=== PATIENT | female | born 1955 | race Caucasian/White ===

== ENCOUNTER 2024-09-26 14:22 | Outpatient (CLI) | payer MEDICARE, OTHER ==
--- NOTE | 2024-09-27 11:27 | RADIOLOGY REPORT ---
CLINICAL INDICATION: OTHER SPECIFIED MONONEUROPATHIES OF UNSPECIFIED LOWER LIMB PAIN R/L FOOT COMPARISON: None TECHNIQUE: Multiplanar, multisequence MRI of the right foot was performed without intravenous contras t. Contrast: None. INTERPRETATION: Bones: No evidence of acute fracture. There is no marrow replacing lesion. Soft tissues: The Lisfranc ligament is intact. The medial and lateral collateral ligaments are intac t at the metatarsophalangeal joints. The flexor and extensor tendons are intact. There is no planta r plate tear. There is no soft tissue mass or fluid collection. The intrinsic muscles of the foot a re unremarkable. IMPRESSION: 1. No acute osseous, soft tissue abnormality or arthropathy in the right foot.
--- NOTE | 2024-09-27 14:54 | RADIOLOGY REPORT ---
CLINICAL INDICATION: PAIN IN RIGHT FOOT, PAIN IN LEFT FOOT,THER SPECIFIED MONONEUROPATHIES OF UN COMPARISON: None TECHNIQUE: Multiplanar, multisequence MRI of the left foot was performed without intravenous contrast . Contrast: None. INTERPRETATION: Bones: No evidence of acute fracture. There is no marrow replacing lesion. Joints: Intact. No periarticular erosion. Soft tissues: The Lisfranc ligament is intact. The medial and lateral collateral ligaments are intac t at the metatarsophalangeal joints. The flexor and extensor tendons are intact. There is no planta r plate tear. There is no soft tissue mass or fluid collection.. The intrinsic muscles of the foot are unremarkable. IMPRESSION: 1. No evidence of acute bone, mass or other soft tissue abnormality or arthropathy in the left foot. hS:Y
== END 2024-09-26 23:59 | disposition home or self-care (01) ==
LOC: MRI02 14:22
PROVIDERS: ATTEND Podiatrist Foot & Ankle Surgery
DX: M79.672 Pain in left foot (principal); G57.80 Other specified mononeuropathies of unspecified lower limb; M79.671 Pain in right foot; R26.2 Difficulty in walking, not elsewhere classified
CPT/HCPCS: 73718